=== PATIENT | female | born 1960 | race African-American/Black ===

== ENCOUNTER 2017-07-31 11:18 | Emergency (ER) | payer MEDICAID, OTHER ==
[~2017-07-31] VITALS: Ht 157.5 cm; Wt 73.0 kg
[2017-07-31 12:07] VITALS: BP 133/79
== END 2017-07-31 17:22 | disposition left against medical advice (07) ==
LOC: ER 15:17
DX: Z53.21 Procedure and treatment not carried out due to patient leaving prior to being seen by health care provider (principal)